=== PATIENT | male | born 1990 | race Asian ===

== ENCOUNTER 2019-01-08 16:50 | Emergency (ER) | payer OTHER ==
[~2019-01-08] VITALS: Ht 172.7 cm; Wt 70.3 kg
--- NOTE | 2019-01-08 17:06 | NUR ---
ED Nurse Note: PT WALKED IN TO ER TODAY FROM HOME. AOX4. PT C/O UPPER ABDOMINAL PAIN, 4/10 X 1 WEEK AGO. PT ADMITS TO ONE EPISODE OF BLOODY VOMITING X 2 DAYS AGO AND ONE EPISODE OF "PINK COLORED" STOOL X LAST NIGHT. ABDOMEN NONDISTENDED BUT TENDER TO PALPATION. ACTIVE BOWEL SOUNDS IN ALL QUADRANTS.
[2019-01-08 17:07] VITALS: BP 114/76
[2019-01-08 17:26] LABS: EOSINOPHILS % (AUTO) 1.4 % (0.0-3.0); HEMATOCRIT 44.7 % (42.0-52.0); HEMOGLOBIN 15.3 G/DL (14.2-18.0); LYMPHOCYTES % (AUTO) 39.1 % (20.0-45.0); MEAN CORPUSCULAR VOLUME 93 FL (80-99); MONOCYTES % (AUTO) 8.1 % (1.0-10.0); NEUTROPHILS % (AUTO) 50.5 % (45.0-75.0); PLATELET COUNT 236 K/UL (150-450); RED BLOOD COUNT 4.79 M/UL (4.70-6.10); RED CELL DISTRIBUTION WIDTH 10.8 % (11.6-14.8)
[2019-01-08 17:41] LABS: ANION GAP 9 mmol/L (5-15); BLOOD UREA NITROGEN 20 mg/dL (7-18); CALCIUM 9.4 MG/DL (8.5-10.1); CARBON DIOXIDE 29 MMOL/L (21-32); CHLORIDE 104 MMOL/L (98-107); CREATININE 1.2 MG/DL (0.55-1.30); POTASSIUM 3.9 MMOL/L (3.5-5.1); SODIUM 142 MMOL/L (136-145)
[2019-01-08 17:45] LABS: ALANINE AMINOTRANSFERASE 16 U/L (12-78); ALBUMIN 4.8 G/DL (3.4-5.0); ALBUMIN/GLOBULIN RATIO 1.6 (1.0-2.7); ALKALINE PHOSPHATASE 51 U/L (46-116); ASPARTATE AMINO TRANSFERASE 13 U/L (15-37); BILIRUBIN,TOTAL 0.6 MG/DL (0.2-1.0); CREATINE KINASE 114 U/L (26-308)
[2019-01-08 17:51] LABS: APPEARANCE,URINE CLEAR; BILIRUBIN, URINE NEGATIVE (NEGATIVE); COLOR,URINE PALE YELLOW; GLUCOSE, URINE (UA) NEGATIVE (NEGATIVE); KETONES,URINE NEGATIVE (NEGATIVE); LEUKOCYTE ESTERASE ,URINE NEGATIVE (NEGATIVE); NITRITE,URINE NEGATIVE (NEGATIVE); PH,URINE 7 (4.5-8.0); PROTEIN,URINE NEGATIVE (NEGATIVE); UROBILINOGEN,URINE NORMAL MG/DL (0.0-1.0)
--- NOTE | 2019-01-08 18:23 | Emergency Room Report ---
History of Present Illness General Chief Complaint: Abdominal Pain Source: Patient Present Illness HPI 28-year-old male with no significant past medical history here complaining of 1 week of epigastric abdominal pain and multiple bouts of vomiting. Patient reports that he had a one bout of bloody emesis about 3 days ago which was post drinking alcohol. Patient also reports that he has some spicy food the night before. Also complains of multiple bouts of diarrhea for the past 3 days with blood in stool. Denies fever and chills, shortness of breath, recent travel, chest pain, palpitation, and all other associated symptoms. Denies dysuria urinary frequency. Patient reports that he normally eats a lot of spicy acidic food and in the past week has had lots of alcohol consumption. Denies pain radiation rating at 3 out of 10 worsening when laying down and has not taken medication for pain. Patient is sitting comfortably and stable. Allergies: Coded Allergies: No Known Allergies (Unverified , 01/08/19) Patient History Past Medical History: see triage record Past Surgical History: unable to obtain Pertinent Family History: none Immunizations: UTD Reviewed Nursing Documentation: PMH: Agreed; PSxH: Agreed Nursing Documentation-PMH Past Medical History: No Stated History Review of Systems All Other Systems: negative except mentioned in HPI Physical Exam Vital Signs Date Time Temp Pulse Resp B/P (MAP) Pulse Ox O2 Delivery O2 Flow Rate FiO2 01/08/19 16:55 97.9 75 16 111/74 (86) 97 Room Air Sp02 EP Interpretation: reviewed, normal General Appearance: normal inspection, well appearing, no apparent distress, alert, GCS 15 Head: normocephalic, atraumatic Eyes: bilateral eye normal inspection, bilateral eye PERRL ENT: normal ENT inspection, hearing grossly normal, normal pharynx Neck: normal inspection, full range of motion, supple, thyroid normal Respiratory: normal inspection, chest non-tender, lungs clear, normal breath sounds, no rhonchi, no wheezing Cardiovascular #1: normal inspection, normal peripheral pulses, regular rate, rhythm, no murmur, normal capillary refill Gastrointestinal: soft, no mass, no organomegaly, no peritonitis, no bruit, no hernia, no pulsatile mass, other - Negative McBurney's, Rovsing's, Pearson's Rectal: deferred Genitourinary: no CVA tenderness Musculoskeletal: normal inspection, back normal, digits/nails normal Neurologic: normal inspection, alert, oriented x3 Psychiatric: normal inspection, judgement/insight normal, memory normal Skin: normal inspection, normal color, no rash, warm/dry, palpation normal Lymphatic: normal inspection, no adenopathy Medical Decision Making PA Attestation All diagnoses and treatment plans were reviewed and discussed with my supervising physician Dr. Loving Diagnostic Impression: Primary Impression: Gastritis ER Course 28-year-old male with no significant past medical history here complaining of 1 week of epigastric abdominal pain and multiple bouts of vomiting. Patient reports that he had a one bout of bloody emesis about 3 days ago which was post drinking alcohol. Patient also reports that he has some spicy food the night before. Also complains of multiple bouts of diarrhea for the past 3 days with blood in stool. Denies fever and chills, shortness of breath, recent travel, chest pain, palpitation, and all other associated symptoms. Denies dysuria urinary frequency. Patient reports that he normally eats a lot of spicy acidic food and in the past week has had lots of alcohol consumption. Denies pain radiation rating at 3 out of 10 worsening when laying down and has not taken medication for pain. Patient is sitting comfortably and stable. Ddx considered but are not limited to: appendicitis, cholycisitis, gastritis, gasthroentritis, UTI, pylonephritis, SBO, diverticulitis, influenza with GI manifestation, CA, Cathie-Johnson tear, pancreatitis Vital signs: are WNL, pt. is afebrile H&PE are most consistent with: gastritis ORDERS: abdominal CT, abdominal pain set, EKG, pantoprazole, Zofran ED INTERVENTIONS: IV fluid, Zofran, Pepcid DISCHARGE: At this time pt. is stable for d/c to home. Will provide printed patient care instructions, and any necessary prescriptions. Care plan and follow up instructions have been discussed with the patient prior to discharge. Follow-up with the primary care provider for referral to surfacing technician for possible endoscopy if continues to have bloody vomit also have stool culture and ova and parasite tested if continues to have bloody diarrhea. Return to the emergency room if fever and chills and worsening symptoms EKG Diagnostic Results Rate: normal Rhythm: NSR ST Segments: no acute changes Chest X-Ray Diagnostic Results Chest X-Ray Diagnostic Results : Chest X-Ray Ordered: Yes # of Views/Limited/Complete: 1 View Indication: Other EP Interpretation: Yes PA Xray: Interpretation reviewed, by supervising MD, and agrees with findings. Interpretation: no consolidation, no effusion, no pneumothorax Impression: No acute disease Electronically Signed by: shirley pereira PA-C CT/MRI/US Diagnostic Results CT/MRI/US Diagnostic Results : Imaging Test Ordered: Abdominal CT no contrast Impression CT ABDOMEN & PELVIS Without Contrast: No hydronephrosis or stone. No bowel obstruction or inflammation. Normal appendix. Mildly prominent mesenteric lymph nodes are nonspecific but may be reactive. Small fat-containing umbilical hernia. Prominence of the bladder wall is nonspecific. Please correlate with urinalysis to evaluate for cystitis. Last Vital Signs Date Time Temp Pulse Resp B/P (MAP) Pulse Ox O2 Delivery O2 Flow Rate FiO2 01/08/19 17:07 98.1 72 18 114/76 99 Room Air Disposition: HOME, SELF-CARE Condition: Stable Patient Instructions: Gastritis, Adult Additional Instructions: Follow-up with the primary care provider for referral to surfacing technician for possible endoscopy if continues to have bloody vomit also have stool culture and ova and parasite tested if continues to have bloody diarrhea. Return to the emergency room if fever and chills and worsening symptoms Shirley Coats Jan 08, 2019 18:23
[2019-01-08] MEDS ORDERED: PANTOPRAZOLE SO40 MG ORAL (18:50)
[2019-01-08] MEDS ORDERED: ZOFRAN4 M1 ORAL (18:50)
--- NOTE | 2019-01-08 18:59 | NUR ---
ED Nurse Note: PT SITTING PEACEFULLY IN BED IN NAD. AOX4. PRESCRIPTIONS AND DISCHARGE PAPERWORK EXPLAINED TO PT. PT VERBALIZES UNDERSTANDING AND ALL QUESTIONS ANSWERED. PRESCRIPTIONS AND DISCHARGE PAPERWORK GIVEN TO PT AND ID WRISTBAND REMOVED. PT WALKED OUT OF ER WITH STEADY GAIT AND ALL BELONGINGS.
[2019-01-08 19:00] VITALS: BP 116/74
--- NOTE | 2019-01-09 09:11 | Diagnostic Imaging Report ---
Indication: Abdominal pain Technique: Continuous helical transaxial imaging of the abdomen and pelvis was obtained from the lung bases to the pubic symphysis. No intravenous contrast was administered. Coronal 2-D reformats were also obtained. Automatic Exposure Control was utilized. Total Dose length Product (DLP): 632.[address] Dose Index Volume (CTDIvol): 12.1 mGy Comparison: none Findings: Lung bases are clear. No hydronephrosis or nephrolithiasis identified. Bowel gas pattern is nonobstructive. Appendix is retrocecal and appears normal. There are mesenteric nodes throughout the abdomen nonspecific. There is no free fluid. The bladder wall may be slightly thickened. Correlate clinically. IMPRESSION: Query mild cystitis. Correlate clinically Multiple small mesenteric lymph nodes nonspecific. [facility] has communicated the preliminary results to the Emergency Department. Their findings are largely concordant with this report. The CT scanner at [facility] is accredited by the [employer] and the scans are performed using dose optimization techniques as appropriate to a performed exam including Automatic Exposure control.
--- NOTE | 2019-01-09 09:49 | Diagnostic Imaging Report ---
Indication: Chest pain Comparison: None A single view chest radiograph was obtained. Findings: Cardiomediastinal appearance is within normal limits for age. The lungs are clear. Pulmonary vascularity is appropriate. The diaphragmatic contour is smooth and costophrenic angles are sharp. No pleural effusions are identified. The bones are unremarkable. Impression: No acute findings
--- NOTE | 2019-01-10 16:00 | Cardiology Report ---
APPROVED REPORT EKG Measurement Heart [id number] Normal sinus rhythm with sinus arrhythmia Normal ECG
== END 2019-01-08 19:00 | disposition home or self-care (01) ==
LOC: EMR 17:23
DX: K29.70 Gastritis, unspecified, without bleeding (principal); K44.9 Diaphragmatic hernia without obstruction or gangrene
CPT/HCPCS: 36415; 71045; 74176; 80053; 81003; 82550; 83690; 85025; 93005; 96361; 96374; 96375; 99284; J2405; S0028